=== PATIENT | male | born 2000 | race Caucasian/White ===

== ENCOUNTER 2022-07-29 11:51 | Emergency (ER) | payer MEDICAID ==
[~2022-07-29] VITALS: Ht 165.1 cm; Wt 63.5 kg
--- NOTE | 2022-07-29 11:51 | NUR ---
SHASHI FROM HOME FOR POSSIBLE OVERDOSE. NON-VERBAL AT THIS TIME. TOLERATING WELL ON 6 LPM O2 VIA MASK.
[2022-07-29] MEDS ORDERED: IV NS 0.9% 1,000 ML BAG IV ONE (12:00)
--- NOTE | 2022-07-29 12:02 | NUR ---
ACCUCHECK 267
[2022-07-29] MEDS ORDERED: NALOXONE PREFILLED SYRINGE 2 MG/2 ML SYRINGE ONE (12:04)
[2022-07-29 12:21] LABS: BASOPHILS # (AUTO) 0.1 K/uL (0.0-0.2); BASOPHILS % (AUTO) 0.6 % (0.0-2.0); EOSINOPHILS % (AUTO) 0.4 % (0.0-6.0); HEMATOCRIT 38 % (39-51); HEMOGLOBIN 11.9 g/dL (13.5-17.5); LYMPHOCYTES # (AUTO) 1.6 K/uL (0.8-4.8); LYMPHOCYTES % (AUTO) 7.2 % (20.0-44.0); MEAN CORPUSCULAR HGB CONC 31 g/dl (31.0-36.0); MEAN CORPUSCULAR VOLUME 93 fL (80-96); MONOCYTES # (AUTO) 0.7 K/uL (0.1-1.30); MONOCYTES % (AUTO) 3.1 % (2.0-12.0); NEUTROPHILS # (AUTO) 19.1 K/uL (1.8-8.9); NEUTROPHILS % (AUTO) 88.7 % (43.0-81.0); PLATELET COUNT (AUTO) 326 K/uL (150-450); RED BLOOD CELL COUNT(AUTO) 4.08 MIL/uL (4.5-6.0); WHITE BLOOD COUNT (AUTO) 21.5 K/uL (4.3-11.0)
[2022-07-29 12:23] LABS: CARBON DIOXIDE 26 mmol/L (21-32); CHLORIDE 102 mmol/L (98-107); CREATININE 1.3 mg/dL (0.6-1.3); GLUCOSE 259 mg/dL (74-106); POTASSIUM 4.6 mmol/L (3.5-5.1); SODIUM SERUM 144 mmol/L (136-145); UREA NITROGEN, BLOOD 9 mg/dL (7-18)
[2022-07-29] MEDS ORDERED: NALOXONE HCL 0.4 MG/ML AMPUL IV ONE (12:30)
[2022-07-29 12:36] LABS: ALANINE AMINOTRANSFERASE 46 U/L (12-78); ALBUMIN 3.6 g/dL (3.4-5.0); ALKALINE PHOSPHATASE 93 U/L (46-116); ASPARTATE AMINOTRANSFERASE 43 U/L (15-37); BILIRUBIN,TOTAL 0.1 mg/dL (0.2-1.0); TOTAL PROTEIN, SERUM 7.6 g/dL (6.4-8.2)
[2022-07-29 12:41] LABS: ALCOHOL, BLOOD < 3 mg/dL (0-0)
--- NOTE | 2022-07-29 13:12 | NUR ---
PATIENT CURRENTLY RESTLESS, UNABLE TO REMAIN STILL FOR CT EXAM. MD MADE AWARE, WILL HOLD CT EXAM FOR NOW.
--- NOTE | 2022-07-29 13:12 | NUR ---
URINE SAMPLE OBTAINED
--- NOTE | 2022-07-29 13:30 | NUR ---
CHEST X-RAY COMPLETED
--- NOTE | 2022-07-29 13:30 | NUR ---
PATIENT NO LONGER RESTLESS, LETHARGIC BUT ABLE TO ANSWER QUESTIONS
[2022-07-29 13:45] LABS: BILIRUBIN,URINE NEGATIVE (NEGATIVE); COLOR,URINE YELLOW (YELLOW); LEUKOCYTE ESTERASE ,URINE NEGATIVE (NEGATIVE); NITRITE, URINE NEGATIVE (NEGATIVE); PROTEIN,URINE TRACE mg/dl (NEGATIVE); UGLUCOSE 2+ mg/dL (NEGATIVE); UROBILINOGEN,URINE 0.2 EU/dL (0.2)
[2022-07-29 13:47] LABS: BACTERIA,URINE Rare /HPF (None Seen); SQUAMOUS EPITHELIAL CELL,UR Few /HPF (None Seen); WBC,URINE 0-2 /HPF (0-3)
[2022-07-29] MEDS ORDERED: HALOPERIDOL LACTATE INJ 5 MG/ML VIAL IM ONE ×2 (15:30→21:30)
[2022-07-29] MEDS ORDERED: HALOPERIDOL LACTATE INJ 5 MG/ML VIAL ONE ×2 (15:33→21:32)
--- NOTE | 2022-07-29 16:00 | NUR ---
SPOKE WITH PATIENT MOTHER (ANN) [phone] WHO STATED PATIENT HAD TAKEN SOME PERCOCET AND XANAX TODAY PRIOR TO ADMISSION
--- NOTE | 2022-07-29 18:59 | NUR ---
CALLED JOSE M SHAFFER [phone] ETA 60 MINS.
--- NOTE | 2022-07-29 20:16 | NUR ---
PT IS ALERT AND ORIENTED, RR EVEN AND NONLABORED. DENIES ANY DISCOMFORT AT THIS TIME. CONNECTED TO POX AND HEART MONITOR.VSS.
--- NOTE | 2022-07-29 20:49 | NUR ---
[facility]UN[facility] SOREN[facility] CRISIS TEAM AT PT'S BEDSIDE FOR [id number] EVAL
[2022-07-29] MEDS ORDERED: diphenhydrAMINE HCL 50 MG/ML VIAL IV ONE (21:30)
[2022-07-29] MEDS ORDERED: diphenhydrAMINE HCL 50 MG/ML VIAL ONE (21:32)
[2022-07-30 02:07] LABS: BASOPHILS # (AUTO) 0.1 K/uL (0.0-0.2); BASOPHILS % (AUTO) 1.1 % (0.0-2.0); HEMATOCRIT 35 % (39-51); HEMOGLOBIN 11.3 g/dL (13.5-17.5); LYMPHOCYTES # (AUTO) 2.3 K/uL (0.8-4.8); LYMPHOCYTES % (AUTO) 22.6 % (20.0-44.0); MEAN CORPUSCULAR HGB CONC 33 g/dl (31.0-36.0); MEAN CORPUSCULAR VOLUME 92 fL (80-96); MONOCYTES # (AUTO) 0.8 K/uL (0.1-1.30); NEUTROPHILS # (AUTO) 6.7 K/uL (1.8-8.9); NEUTROPHILS % (AUTO) 67.3 % (43.0-81.0); PLATELET COUNT (AUTO) 255 K/uL (150-450); RED BLOOD CELL COUNT(AUTO) 3.76 MIL/uL (4.5-6.0)
--- NOTE | 2022-07-30 13:55 | NUR ---
Patient discharged to home in stable condition. Written and verbal after care instructions given. Patient verbalizes understanding of instruction.
[2022-07-30 13:56] VITALS: BP 116/65
== END 2022-07-30 13:56 | disposition home or self-care (01) ==
LOC: ER 11:54
DX: T40.2X1A Poisoning by other opioids, accidental (unintentional), initial encounter (principal); R94.31 Abnormal electrocardiogram [ECG] [EKG]; Y92.89 Other specified places as the place of occurrence of the external cause
CPT/HCPCS: 99285; 96372; 96374; 96361; 93005; 71045; 85025 ×2; 80048; 80076; 81001; 36415 ×2; 84484 ×2; 80143; 80320; 80179; 80307; J1200; J1630; J7030; J2310; G0480

== ENCOUNTER 2023-04-23 10:01 | Emergency (ER) | payer MEDICAID, OTHER ==
[~2023-04-23] VITALS: Ht 175.3 cm; Wt 61.7 kg
[2023-04-23] MEDS ORDERED: ACETAMINOPHEN ES 500 MG TABLET PO ONE (11:00)
[2023-04-23] MEDS ORDERED: IBUPROFEN 400 MG TABLET PO ONE (11:00)
[2023-04-23] MEDS ORDERED: ACETAMINOPHEN ES 500 MG TABLET ONE (11:07)
[2023-04-23] MEDS ORDERED: IBUPROFEN 400 MG TABLET ONE (11:08)
[2023-04-23 13:03] VITALS: BP 143/91; TEMP 98.7; O2SAT 100
== END 2023-04-23 13:03 ==
LOC: ER 10:05
DX: R07.89 Other chest pain (principal)
CPT/HCPCS: 71045-TC